=== PATIENT | female | born 1945 | race Caucasian/White ===

== ENCOUNTER → 2017-01-01 | Outpatient (CLI) | payer MEDICARE | END | disposition home or self-care (01) | LOC: CFH 07:53 | PROVIDERS: ATTEND Internal Medicine | DX: Z12.31 Encounter for screening mammogram for malignant neoplasm of breast (principal); Z13.820 Encounter for screening for osteoporosis; M85.80 Other specified disorders of bone density and structure, unspecified site; M81.8 Other osteoporosis without current pathological fracture | CPT/HCPCS: 77080; G0202 ==

== ENCOUNTER → 2017-04-16 | Outpatient (CLI) | payer MEDICARE | END | disposition home or self-care (01) | LOC: CFH 10:54 | PROVIDERS: ATTEND Internal Medicine Cardiovascular Disease | DX: I08.3 Combined rheumatic disorders of mitral, aortic and tricuspid valves (principal); I10 Essential (primary) hypertension; E11.9 Type 2 diabetes mellitus without complications | CPT/HCPCS: 93306 ==

== ENCOUNTER → 2018-04-06 | Outpatient (CLI) | payer MEDICARE | END | disposition home or self-care (01) | LOC: CFH 09:27 | PROVIDERS: ATTEND Internal Medicine Cardiovascular Disease | DX: I35.0 Nonrheumatic aortic (valve) stenosis (principal); I10 Essential (primary) hypertension; E78.5 Hyperlipidemia, unspecified; E11.9 Type 2 diabetes mellitus without complications | CPT/HCPCS: 93306 ==

== ENCOUNTER → 2018-04-14 | Outpatient (CLI) | payer MEDICARE | END | disposition home or self-care (01) | LOC: EDSTATUS 08:30 → CFH 08:46 | PROVIDERS: ATTEND Internal Medicine | DX: Z12.31 Encounter for screening mammogram for malignant neoplasm of breast (principal) | CPT/HCPCS: 77067 ==

== ENCOUNTER 2019-11-23 18:28 | Emergency (ER) | payer MEDICARE ==
[~2019-11-23] VITALS: Ht 154.9 cm; Wt 87.4 kg
[2019-11-23] MEDS ORDERED: GLIP5TAB10 PO (19:06)
[2019-11-23] MEDS ORDERED: CETI10CA PO (19:06)
[2019-11-23] MEDS ORDERED: EZET10TA70 PO (19:06)
[2019-11-23] MEDS ORDERED: LISI-167 PO (19:06)
[2019-11-23] MEDS ORDERED: OMEP10CA5 PO (19:06)
[2019-11-23] MEDS ORDERED: METF500T17 PO (19:06)
--- NOTE | 2019-11-23 19:25 | NUR ---
Patient presents to ER c/o fever, chills, and body aches since Wednesday. Patient denies any other symptoms including CP or SOB. Patient is in NAD. Respirations even and unlabored.
[2019-11-23 19:36] LABS: BASOPHILS # (AUTO) 0.01 x10^3/uL (0-0.1); BASOPHILS % (AUTO) 0 % (0-1); EOSINOPHILS # (AUTO) 0.01 x10^3/uL (0-0.4); EOSINOPHILS % (AUTO) 0 % (1-7); LYMPHOCYTES # (AUTO) 0.76 x10^3/uL (1-3.4); LYMPHOCYTES % (AUTO) 21 % (22-44); MD NO; MEAN CORPUSCULAR HEMOGLOBIN 28.6 pg (27.0-34.8); MEAN CORPUSCULAR HGB CONC 33.6 g/dL (32.4-35.8); MEAN CORPUSCULAR VOLUME 85.1 fL (80-100); MEAN PLATELET VOLUME 7.7 fL (7.4-10.4); MONOCYTES # (AUTO) 0.23 x10^3/uL (0.2-0.8); MONOCYTES % (AUTO) 7 % (2-9); NEUTROPHILS # (AUTO) 2.54 x10^3/uL (1.8-6.8); NEUTROPHILS % (AUTO) 71 % (42-75); PLATELET COUNT 146 x10^3/uL (130-400); RED BLOOD COUNT 3.77 x10^6/uL (3.82-5.3); RED CELL DISTRIBUTION WIDTH 15.9 % (9.6-15.2)
[2019-11-23 19:38] LABS: MICROSCOPIC INDICATED
[2019-11-23 19:47] LABS: ALANINE AMINOTRANSFERASE 34 U/L (12-78); ALBUMIN 3.1 g/dL (3.4-5.0); ANION GAP 10 mmol/L (5-15); CALCIUM 8.6 mg/dL (8.5-10.1); CHLORIDE 111 mmol/L (98-107); CREATININE 1.15 mg/dL (0.55-1.02)
[2019-11-23 19:51] LABS: ALKALINE PHOSPHATASE 89 U/L (45-117); BILIRUBIN,TOTAL 0.2 mg/dL (0.2-1.0); TOTAL PROTEIN 6.8 g/dL (6.4-8.2); TROPONIN I < 0.015 ng/mL (0.000-0.045)
[2019-11-23] MEDS ORDERED: CEFTRIAXONE PMX 1GM/50ML 50 ML ONE (20:12)
[2019-11-23 20:29] VITALS: BP 101/58
[2019-11-23] MEDS ORDERED: CEFTRIAXONE PMX 1GM/50ML 50 ML IV ONE (20:30)
[2019-11-23] MEDS ORDERED: SODIUM CHLORIDE 0.9% 1,000ML IVBOLUS ONE (20:30)
--- NOTE | 2019-11-23 20:33 | NUR ---
Meds admin per mar. Patient has no complaints at this time.
--- NOTE | 2019-11-23 21:22 | NUR ---
TREVOR, PT FAMILY MEMBER .
== END 2019-11-23 21:53 | disposition home or self-care (01) ==
LOC: ED 18:46
DX: N30.00 Acute cystitis without hematuria (principal); Z20.828 Contact with and (suspected) exposure to other viral communicable diseases; N10 Acute pyelonephritis; R19.7 Diarrhea, unspecified; R05 Cough
CPT/HCPCS: 36415; 71045; 80053; 81001; 84145; 84484; 85025; 87040; 87077; 87086; 87186; 96374; 99284; J0696; J7030; U0001

== ENCOUNTER → 2020-07-01 | Outpatient (CLI) | payer MEDICARE ==
[~2020-07-01] MED LIST: CETI10CA PO; EZET10TA70 PO; GLIP5TAB10 PO; LISI-167 PO; METF500T17 PO; OMEP10CA5 PO
== END | disposition home or self-care (01) ==
LOC: CFH 14:49
PROVIDERS: ATTEND Internal Medicine Cardiovascular Disease
DX: I08.8 Other rheumatic multiple valve diseases (principal)
CPT/HCPCS: 93306

== ENCOUNTER → 2021-02-20 | Outpatient (CLI) | payer MEDICARE ==
[~2021-02-20] MED LIST changes: +OMNIPAQUE 350 MG/ML, 100ML BOTTLE ONE
[2021-02-20 09:40] LABS: CREATININE 0.76 mg/dL (0.55-1.02)
== END | disposition home or self-care (01) ==
LOC: RAD 08:47
PROVIDERS: ATTEND Internal Medicine
DX: R19.03 Right lower quadrant abdominal swelling, mass and lump (principal); K57.30 Diverticulosis of large intestine without perforation or abscess without bleeding; N13.30 Unspecified hydronephrosis; K45.0 Other specified abdominal hernia with obstruction, without gangrene
CPT/HCPCS: 36415; 74177; 82565; Q9967